=== PATIENT | male | born 1960 | race Two or more races ===

== ENCOUNTER 2020-08-28 11:58 | Emergency (ER) | payer MEDICAID ==
[~2020-08-28] VITALS: Ht 172.7 cm; Wt 100.0 kg
[2020-08-28] MEDS ORDERED: TRAZ-251 PO (12:17)
[2020-08-28] MEDS ORDERED: LITH150C PO (12:17)
[2020-08-28] MEDS ORDERED: QUET100T PO (12:17)
[2020-08-28 13:56] VITALS: BP 122/78
== END 2020-08-28 13:56 | disposition home or self-care (01) ==
LOC: ER 11:58
DX: F31.9 Bipolar disorder, unspecified (principal); F20.9 Schizophrenia, unspecified
CPT/HCPCS: 99281